=== PATIENT | male | born 1970 ===

== ENCOUNTER 2020-02-14 12:57 | Emergency (ER) | payer MEDICAID ==
[~2020-02-14] VITALS: Ht 190.5 cm; Wt 82.1 kg
[2020-02-14 13:00] VITALS: BP 115/65
== END 2020-02-14 13:30 | disposition home or self-care (01) ==
LOC: ED 13:19
DX: R06.00 Dyspnea, unspecified (principal); F17.200 Nicotine dependence, unspecified, uncomplicated
CPT/HCPCS: 99283